=== PATIENT | female | born 1935 | race Caucasian/White ===

== ENCOUNTER → 2020-01-29 | Outpatient (CLI) | payer MEDICARE ==
[~2020-01-29] MED LIST: ATOR20TA37 PO; CHOL10003 PO; FURO-92 PO; INFL100V INJ; LANS15CA60 PO; LEVO112T2 PO; LOSA100T14 PO; METO25TA35 PO; MULT-717 PO; TIMO5DRO8 EACHEYE; Vitamin B12 PO; methotrexate PO
[2020-01-29 12:03] LABS: ALBUMIN 3.3 g/dL (3.4-5.0); ANION GAP 5 mmol/L (5-15); CALCIUM 8.6 mg/dL (8.5-10.1); CHLORIDE 108 mmol/L (98-107); CREATININE 1.24 mg/dL (0.55-1.02)
[2020-01-29 12:05] LABS: ALANINE AMINOTRANSFERASE 27 U/L (12-78); ALKALINE PHOSPHATASE 79 U/L (45-117); BILIRUBIN,TOTAL 0.7 mg/dL (0.2-1.0); TOTAL PROTEIN 7.6 g/dL (6.4-8.2)
== END | disposition home or self-care (01) ==
LOC: STAR 10:24
PROVIDERS: ATTEND Orthopaedic Surgery
DX: Z01.818 Encounter for other preprocedural examination (principal); M17.12 Unilateral primary osteoarthritis, left knee; M25.562 Pain in left knee; R00.1 Bradycardia, unspecified
CPT/HCPCS: 36415; 80053; 87081; 93005

== ENCOUNTER → 2020-02-08 | Outpatient (CLI) | payer MEDICARE | END | disposition home or self-care (01) | LOC: CLISVCS 09:57 | PROVIDERS: ATTEND Anesthesiology | DX: Z20.828 Contact with and (suspected) exposure to other viral communicable diseases (principal) | CPT/HCPCS: 87635 ==

== ENCOUNTER 2020-02-14 05:08 | Observation (INO) | payer MEDICARE ==
[~2020-02-14] VITALS: Ht 167.6 cm; Wt 90.0 kg
[2020-02-14] MEDS ORDERED: CHLORHEXIDINE 15 ML UDC MM ONE (06:00)
[2020-02-14] MEDS ORDERED: LACTATED RINGERS 1,000 ML IV SCH (06:00)
[2020-02-14 06:08] VITALS: BP 188/84
[2020-02-14] MEDS ORDERED: EPINEPHRINE 1 MG/ML, 1ML ONE (06:13)
[2020-02-14] MEDS ORDERED: TRANEXAMIC ACID 100 MG/ML, 10ML ONE (06:13)
[2020-02-14] MEDS ORDERED: BUPIVACAINE/PF 0.5% ONE ×2 (06:13→07:46)
[2020-02-14] MEDS ORDERED: MIDAZOLAM 1 MG/ML, 2ML ONE (06:43)
[2020-02-14] MEDS ORDERED: FENTANYL PF 250 MCG/5ML ONE (06:44)
[2020-02-14] MEDS ORDERED: MEPERIDINE/PF 25MG/0.5ML IVPush PRN (07:30)
[2020-02-14] MEDS ORDERED: METHOCARBAMOL 1,000 MG in DEXTROSE 5% 100 ML IV PRN (07:30)
[2020-02-14] MEDS ORDERED: hydrALAzine 20 MG/ML, 1ML IV PRN (07:30)
[2020-02-14] MEDS ORDERED: LABETALOL 5MG/ML, 20ML IV PRN (07:30)
[2020-02-14] MEDS ORDERED: OXYcodone 5 MG/5 ML ORAL.SOL UDC PO PRN (07:30)
[2020-02-14] MEDS ORDERED: ACETAMINOPHEN 325 MG TABLET PO PRN (07:30)
[2020-02-14] MEDS ORDERED: ALBUTEROL SULFATE 2.5 MG/3 ML NPPB PRN (07:30)
[2020-02-14] MEDS ORDERED: PROMETHAZINE 25 MG/ML, 1ML IVPush PRN (07:30)
[2020-02-14] MEDS ORDERED: LORazepam 2 MG/ML, 1ML IVPush PRN (07:30)
[2020-02-14] MEDS ORDERED: HYDROmorphone 1 MG/ML, 1ML INJ IVPush PRN (07:30)
[2020-02-14] MEDS ORDERED: PROPOFOL 10 MG/ML, 20ML ONE (07:46)
[2020-02-14] MEDS ORDERED: CEFAZOLIN 1,000 MG ONE (07:46)
[2020-02-14] MEDS ORDERED: DEXAMETHASONE 4 MG/ML, 1ML ONE (07:46)
[2020-02-14] MEDS ORDERED: ONDANSETRON 2MG/ML, 2ML ONE (07:46)
[2020-02-14] MEDS: CEFAZOLIN PMX 1GM/50ML 50 ML IVPB SCH ×2 (08:30→15:20)
[2020-02-14] MEDS: D5%-0.45% NACL 1,000 ML IV SCH ×2 (08:30→11:26)
[2020-02-14] MEDS ORDERED: ACETAMINOPHEN 650 MG/20.3 ML UDC ONE (08:30)
[2020-02-14] MEDS ORDERED: FENTANYL PF 100 MCG/2ML ONE (08:30)
[2020-02-14] MEDS ORDERED: ONDANSETRON 2MG/ML, 2ML IV PRN (08:30)
[2020-02-14] MEDS ORDERED: MORPHINE SULFATE 4 MG/ML, 1ML IVPush PRN (08:30)
[2020-02-14] MEDS ORDERED: OXYcodone 5 MG/5 ML ORAL.SOL UDC ONE (08:30)
[2020-02-14] MEDS: KETOROLAC 30 MG/1 ML IV SCH ×2 (08:30→16:00)
[2020-02-14] MEDS: ACETAMINOPHEN 500 MG TABLET PO SCH ×3 (08:30→20:36)
[2020-02-14] MEDS: OXYcodone IR 5MG TABLET PO SCH ×3 (08:30→20:37)
[2020-02-14] MEDS: FENTANYL PF 100 MCG/2ML IV PRN ×2 (08:34→08:44)
[2020-02-14] MEDS ORDERED: LORazepam 2 MG/ML, 1ML ONE (08:42)
[2020-02-14] MEDS: CHOLECALCIFEROL 1,000 UNIT TABLET PO SCH (09:00)
[2020-02-14] MEDS: METOPROLOL TARTRATE 25 MG TAB PO SCH ×2 (09:00→20:36)
[2020-02-14] MEDS: DOCUSATE 100 MG CAPSULE PO SCH ×2 (09:00→20:37)
[2020-02-14] MEDS: LOSARTAN 100 MG TAB PO SCH (09:00)
[2020-02-14] MEDS: FUROSEMIDE 40 MG TABLET PO SCH (09:00)
[2020-02-14] MEDS: TIMOLOL OPHTH 0.25%, 5ML EACHEYE SCH ×2 (09:00→22:50)
[2020-02-14 13:27] VITALS: BP 146/76
[2020-02-14 18:56] VITALS: BP 131/80
[2020-02-14] MEDS ORDERED: ATORVASTATIN 20 MG TABLET PO SCH (21:00)
[2020-02-15 00:43] VITALS: BP 115/64
[2020-02-15] MEDS: KETOROLAC 30 MG/1 ML IV SCH (00:53)
[2020-02-15] MEDS: OXYcodone IR 5MG TABLET PO SCH ×2 (02:30→08:14)
[2020-02-15] MEDS: ACETAMINOPHEN 500 MG TABLET PO SCH ×2 (02:30→08:13)
[2020-02-15] MEDS ORDERED: CEFAZOLIN PMX 1GM/50ML 50 ML IVPB SCH (03:00)
[2020-02-15] MEDS: D5%-0.45% NACL 1,000 ML IV SCH (04:01)
[2020-02-15 04:13] VITALS: BP 120/54
[2020-02-15] MEDS ORDERED: ASPIRIN 325 MG TABLET PO SCH (06:00)
[2020-02-15] MEDS ORDERED: PANTOPRAZOLE 40MG TABLET PO SCH (06:00)
[2020-02-15] MEDS ORDERED: LEVOTHYROXINE 112 MCG TABLET PO SCH (06:00)
[2020-02-15] MEDS: DOCUSATE 100 MG CAPSULE PO SCH (08:14)
[2020-02-15] MEDS: METOPROLOL TARTRATE 25 MG TAB PO SCH (08:14)
[2020-02-15] MEDS: FUROSEMIDE 40 MG TABLET PO SCH (08:14)
[2020-02-15] MEDS: CHOLECALCIFEROL 1,000 UNIT TABLET PO SCH (08:14)
[2020-02-15] MEDS: LOSARTAN 100 MG TAB PO SCH (08:14)
[2020-02-15] MEDS: TIMOLOL OPHTH 0.25%, 5ML EACHEYE SCH (08:15)
[2020-02-15 08:21] VITALS: BP 119/68
== END 2020-02-15 11:31 | disposition home or self-care (01) ==
LOC: OUT 05:08 → ORIP 08:18 → 4NE 10:51 → DCLOUNGE 02-15 11:15
PROVIDERS: ADMIT Orthopaedic Surgery; ATTEND Orthopaedic Surgery
DX: M17.12 Unilateral primary osteoarthritis, left knee (principal); M23.8X2 Other internal derangements of left knee; M23.8X1 Other internal derangements of right knee; E66.9 Obesity, unspecified; K21.9 Gastro-esophageal reflux disease without esophagitis; I10 Essential (primary) hypertension; E78.5 Hyperlipidemia, unspecified; E03.9 Hypothyroidism, unspecified; J44.9 Chronic obstructive pulmonary disease, unspecified; M06.9 Rheumatoid arthritis, unspecified; Z88.0 Allergy status to penicillin; Z79.899 Other long term (current) drug therapy
CPT/HCPCS: 27447; 73560; 96361; 96365; 96366; 96375; 96376; 97110; 97116; 97162; 97530; C1713; C1776; G0378; J0171; J0690; J1100; J1885; J2060; J2250; J2405; J2704; J2800; J3010; J7120; S0020